=== PATIENT | female | born 1995 | race Caucasian/White ===

== ENCOUNTER 2018-07-22 15:47 | Emergency (ER) | payer MEDICAID ==
[~2018-07-22] VITALS: Ht 157.5 cm; Wt 47.8 kg
[2018-07-22 17:28] LABS: BASOPHILS # (AUTO) 0.02 x10^3/uL (0-0.1); BASOPHILS % (AUTO) 0 % (0-1); EOSINOPHILS # (AUTO) 0.05 x10^3/uL (0-0.4); EOSINOPHILS % (AUTO) 1 % (1-7); LYMPHOCYTES # (AUTO) 1.81 x10^3/uL (1-3.4); LYMPHOCYTES % (AUTO) 31 % (22-44); MD NO; MEAN CORPUSCULAR HEMOGLOBIN 31.1 pg (27.0-34.8); MEAN CORPUSCULAR HGB CONC 33.5 g/dL (32.4-35.8); MEAN CORPUSCULAR VOLUME 92.8 fL (80-100); MEAN PLATELET VOLUME 8.9 fL (7.4-10.4); MONOCYTES # (AUTO) 0.55 x10^3/uL (0.2-0.8); MONOCYTES % (AUTO) 9 % (2-9); NEUTROPHILS # (AUTO) 3.39 x10^3/uL (1.8-6.8); NEUTROPHILS % (AUTO) 58 % (42-75); PLATELET COUNT 231 x10^3/uL (130-400); RED BLOOD COUNT 4.74 x10^6/uL (3.82-5.3); RED CELL DISTRIBUTION WIDTH 13.5 % (9.6-15.2)
[2018-07-22] MEDS ORDERED: CEFTRIAXONE 250 MG IM ONE (17:30)
[2018-07-22] MEDS ORDERED: AZITHROMYCIN 250 MG TABLET PO/NG ONE (17:30)
[2018-07-22 17:37] LABS: ALBUMIN 4.1 g/dL (3.4-5.0); ANION GAP 7 mmol/L (5-15); CALCIUM 9.1 mg/dL (8.5-10.1); CHLORIDE 109 mmol/L (98-107)
--- NOTE | 2018-07-22 17:41 | NUR ---
PT HERE FOR VAGINAL BLEEDING X 2 DAYS. STATES SHE HAD 3 EPISODES THIS MONTH. MORE BLOOD THAN NORMAL MENSTURAL CYCLE. STATES SHE THINKS LAST MENSUTRAL CYCLE WAS ON 07/08. PT STATES DENIES BEING AT THIS TIME. NAD NOTED. BREATHING REGULAR AND UNLABORED. POC DISCUSSED. WILL CONTINUE TO MONITOR.
[2018-07-22 17:44] LABS: MICROSCOPIC NOT IND
[2018-07-22 17:55] LABS: CULTURE INDICATED? NO
[2018-07-22] MEDS ORDERED: AZITHROMYCIN 500 MG TABLET ONE (18:15)
[2018-07-22] MEDS ORDERED: CEFTRIAXONE 250 MG ONE (18:15)
--- NOTE | 2018-07-22 18:15 | NUR ---
BREAK RN: PT UPRIGHT ON GURNEY AWAKE & COMFORTABLE, RESPONDS APPROP TO STAFF, NAD, COMFORT MEASURES PROVIDED, FAMILY AT BS, CALL LIGHT WITHIN REACH.
[2018-07-22 18:22] VITALS: BP 118/73
--- NOTE | 2018-07-22 18:57 | NUR ---
Patient given discharge instructions and Rx, they have confirmed that they understand the instructions. Patient ambulatory with steady gait.
== END 2018-07-22 18:58 | disposition home or self-care (01) ==
LOC: ED 18:35
DX: N93.8 Other specified abnormal uterine and vaginal bleeding (principal)
CPT/HCPCS: 36415; 76830; 80048; 81003; 82040; 84703; 85025; 96372; 99284; J0696

== ENCOUNTER 2018-09-13 12:19 | Emergency (ER) | payer MEDICAID ==
[~2018-09-13] VITALS: Ht 157.5 cm; Wt 53.2 kg
[2018-09-13 12:21] VITALS: BP 110/69
--- NOTE | 2018-09-13 13:25 | NUR ---
Patient/Caregiver given discharge instructions and they have confirmed that they understand the instructions. Patient ambulatory with steady gait.
== END 2018-09-13 13:26 | disposition home or self-care (01) ==
LOC: ED 12:59
DX: K04.6 Periapical abscess with sinus (principal); F17.200 Nicotine dependence, unspecified, uncomplicated
CPT/HCPCS: 41800; 99284

== ENCOUNTER 2019-12-18 21:46 | Emergency (ER) | payer SELFPAY ==
[~2019-12-18] VITALS: Ht 160 cm; Wt 44.5 kg
[2019-12-18 22:15] LABS: HCG UR SG 1.035 (1.003-1.030)
[2019-12-18 22:28] LABS: MICROSCOPIC INDICATED
--- NOTE | 2019-12-18 23:05 | NUR ---
ASSESSMENT MADE. ERP AT BEDSIDE.
--- NOTE | 2019-12-18 23:35 | NUR ---
patient discharged with prescriptions and instruction. verbalized understanding.
[2019-12-18 23:37] VITALS: BP 129/79
== END 2019-12-18 23:38 | disposition home or self-care (01) ==
LOC: ED 23:27
DX: M54.5 Low back pain (principal); N30.00 Acute cystitis without hematuria; F17.290 Nicotine dependence, other tobacco product, uncomplicated
CPT/HCPCS: 81001; 81025; 87086; 99283; 99406

== ENCOUNTER 2020-01-26 13:18 | Emergency (ER) | payer MEDICAID, OTHER ==
[~2020-01-26] VITALS: Ht 157.5 cm; Wt 45.1 kg
--- NOTE | 2020-01-26 13:42 | NUR ---
Pt believes she is and unable to get into a pcp. Pt reports that she is late on her period. Pt reports that she feels fine but wants to make sure that this pregancy is not the fallopian tube. Pt reports no concerning symptoms or dischaged. Pt fanited when having her blood drawn. Pt is back to normal.
[2020-01-26 13:51] VITALS: BP 90/62
[2020-01-26 13:55] LABS: BASOPHILS # (AUTO) 0.05 x10^3/uL (0-0.1); BASOPHILS % (AUTO) 1 % (0-1); EOSINOPHILS # (AUTO) 0.03 x10^3/uL (0-0.4); EOSINOPHILS % (AUTO) 1 % (1-7); LYMPHOCYTES # (AUTO) 2.01 x10^3/uL (1-3.4); LYMPHOCYTES % (AUTO) 34 % (22-44); MD NO; MEAN CORPUSCULAR HEMOGLOBIN 31.2 pg (27.0-34.8); MEAN CORPUSCULAR HGB CONC 33.3 g/dL (32.4-35.8); MEAN CORPUSCULAR VOLUME 93.4 fL (80-100); MEAN PLATELET VOLUME 8.7 fL (7.4-10.4); MONOCYTES # (AUTO) 0.54 x10^3/uL (0.2-0.8); MONOCYTES % (AUTO) 9 % (2-9); NEUTROPHILS # (AUTO) 3.24 x10^3/uL (1.8-6.8); NEUTROPHILS % (AUTO) 55 % (42-75); PLATELET COUNT 221 x10^3/uL (130-400); RED BLOOD COUNT 4.81 x10^6/uL (3.82-5.3); RED CELL DISTRIBUTION WIDTH 12.6 % (9.6-15.2)
[2020-01-26 14:02] LABS: ALBUMIN 4.2 g/dL (3.4-5.0); ANION GAP 5 mmol/L (5-15); CHLORIDE 108 mmol/L (98-107)
--- NOTE | 2020-01-26 14:10 | NUR ---
Pt to US
[2020-01-26 14:20] LABS: CREATININE 0.68 mg/dL (0.55-1.02)
--- NOTE | 2020-01-26 15:28 | NUR ---
Patient/Caregiver given discharge instructions and they have confirmed that they understand the instructions. Patient ambulatory with steady gait.
== END 2020-01-26 15:59 | disposition home or self-care (01) ==
LOC: ED 14:23
DX: O26.891 Other specified pregnancy related conditions, first trimester (principal); R10.2 Pelvic and perineal pain; Z3A.01 Less than 8 weeks gestation of pregnancy
CPT/HCPCS: 36415; 76801; 80048; 82040; 84702; 85025; 99284

== ENCOUNTER 2020-02-02 13:42 | Emergency (ER) | payer SELFPAY ==
--- NOTE | 2020-02-02 14:16 | NUR ---
PHYSICIAN EXTENDER: PT CALLED FROM LOBBY NO ANSWER
[2020-02-02 14:30] LABS: BASOPHILS # (AUTO) 0.04 x10^3/uL (0-0.1); BASOPHILS % (AUTO) 1 % (0-1); EOSINOPHILS # (AUTO) 0.05 x10^3/uL (0-0.4); EOSINOPHILS % (AUTO) 1 % (1-7); LYMPHOCYTES # (AUTO) 1.62 x10^3/uL (1-3.4); LYMPHOCYTES % (AUTO) 22 % (22-44); MD NO; MEAN CORPUSCULAR HEMOGLOBIN 31.2 pg (27.0-34.8); MEAN CORPUSCULAR HGB CONC 33.6 g/dL (32.4-35.8); MEAN CORPUSCULAR VOLUME 92.8 fL (80-100); MEAN PLATELET VOLUME 8.6 fL (7.4-10.4); MONOCYTES # (AUTO) 0.67 x10^3/uL (0.2-0.8); MONOCYTES % (AUTO) 9 % (2-9); NEUTROPHILS # (AUTO) 5.03 x10^3/uL (1.8-6.8); NEUTROPHILS % (AUTO) 68 % (42-75); PLATELET COUNT 225 x10^3/uL (130-400); RED BLOOD COUNT 4.57 x10^6/uL (3.82-5.3); RED CELL DISTRIBUTION WIDTH 12.7 % (9.6-15.2)
[2020-02-02 14:33] LABS: ALBUMIN 4.1 g/dL (3.4-5.0); ANION GAP 5 mmol/L (5-15); CALCIUM 8.6 mg/dL (8.5-10.1); CHLORIDE 109 mmol/L (98-107); CREATININE 0.58 mg/dL (0.55-1.02)
--- NOTE | 2020-02-02 14:35 | NUR ---
STEAM PRESSER: PT TO ROOM FROM LOBBY
--- NOTE | 2020-02-02 15:20 | NUR ---
Pt resing in [facility] with mother bedside, pt sts no needs at this time, will continue to monitor.
[2020-02-02 15:26] LABS: MICROSCOPIC INDICATED
[2020-02-02 16:27] VITALS: BP 94/49
--- NOTE | 2020-02-02 16:39 | NUR ---
Patient/Caregiver given discharge instructions and they have confirmed that they understand the instructions. Patient ambulatory with steady gait. pt left with mother. pt given prescription and verbalized understanding of d/c instructions.
== END 2020-02-02 16:42 | disposition home or self-care (01) ==
LOC: ED 16:00
DX: O23.41 Unspecified infection of urinary tract in pregnancy, first trimester (principal); R10.9 Unspecified abdominal pain; R53.83 Other fatigue; R11.0 Nausea; F17.200 Nicotine dependence, unspecified, uncomplicated; Z3A.08 8 weeks gestation of pregnancy
CPT/HCPCS: 36415; 80048; 81001; 82040; 85025; 87086; 99283